=== PATIENT | female | born 1965 | race Caucasian/White ===

== ENCOUNTER 2021-01-04 09:11 | Day surgery (SDC) | payer OTHER ==
[~2021-01-04 09:11] MED LIST: ALBIPROI INH; AZIT250 PO; CIPR500 PO; FLUSAL2505 INH; HYDCHL12.5 PO; TIZA4 PO; Ventolin/Prove6.7 GM INH
--- NOTE | 2021-01-04 11:08 | NUR ---
PT HAS BEEN MONITORED FOR THE PAST 30 MIN POST INFUSION, WARM BLANKETS GIVEN NO S/S OF DISTRESS.
== END 2021-01-04 11:30 | disposition home or self-care (01) ==
LOC: ATC 09:11
DX: U07.1 COVID-19 (principal)
CPT/HCPCS: 96365; Q0243